=== PATIENT | female | born 1970 | race Caucasian/White ===

== ENCOUNTER 2019-11-26 13:14 | Inpatient (IN) | payer OTHER ==
--- NOTE | 2019-11-26 13:35 | ED ---
Psych HPI - General Chief Complaint: Psychiatric Symptoms Stated Complaint: EPS eval Time Seen by Provider: 11/26/19 13:27 Source: patient Mode of arrival: ambulatory - History of Present Illness Initial Comments: Patient is a 49-year-old female with history of bipolar disorder and depression presenting to the emergency department for psychiatric evaluation. Patient is brought to the ED by her father. Patient states she is currently going through a divorce and her mother is sick along with plethora of her own medical problems. Patient reports she is having a nervous breakdown and cannot handle situation. States she was recently started on antidepressant but could not name the medication. States she lives in [place] but is recently come back here to help with her mother. She denies any homicidal, suicidal thoughts or ideations. - Related Data Home Medications Medication Instructions Recorded Confirmed Albuterol Inhaler [Ventolin Hfa 2 puff INHALATION RT-Q6H PRN 11/26/19 11/26/19 Inhaler] Amoxicillin 500 mg PO BID 11/26/19 11/26/19 Betamethasone Dipropionate 1 applic TOPICAL BID 11/26/19 11/26/19 [Betamethasone Dipropionate 0.05%] Buta/APAP/Caf/Cod 55-864-60-30 1 cap PO TID PRN 11/26/19 11/26/19 [Fioricet w/Cod 09-105-51-30MG] Carvedilol [Coreg] 3.125 mg PO BID 11/26/19 11/26/19 Cyclobenzaprine [Flexeril] 10 mg PO TID PRN 11/26/19 11/26/19 Etanercept [Enbrel Sureclick] 50 mg SQ TH 11/26/19 11/26/19 HYDROcodone/APAP 7.5-325MG [[place] 1 tab PO Q6H PRN 11/26/19 11/26/19 7.5-325] Inulin/Chromium Picolinate [Fiber 2 tab PO DAILY 11/26/19 11/26/19 Gummies Chew] L.acidoph,Paracasei, B.lactis 1 cap PO DAILY 11/26/19 11/26/19 [Probiotic] Loratadine-Pseudoeph 5-120 mg 1 tab PO BID PRN 11/26/19 11/26/19 [Claritin-D 12 Hour] Losartan [Cozaar] 50 mg PO BID 11/26/19 11/26/19 Meloxicam [Mobic] 7.5 mg PO BID PRN 11/26/19 11/26/19 NIFEdipine [NIFEdipine ER 30 mg PO DAILY 11/26/19 11/26/19 (Osmotic)] Nortriptyline [Pamelor] See Taper PO HS 11/26/19 11/26/19 Ondansetron Odt [Zofran Odt] 8 mg PO Q8H PRN 11/26/19 11/26/19 Sennosides/Docusate Sodium [Colace 1 tab PO DAILY PRN 11/26/19 11/26/19 2-in-1 Tablet] Spironolactone [Aldactone] 25 mg PO DAILY 11/26/19 11/26/19 Wheat Dextrin [Benefiber] 1 packet PO HS PRN 11/26/19 11/26/19 amLODIPine [Norvasc] 10 mg PO DAILY 11/26/19 11/26/19 hydroCHLOROthiazide [Hydrodiuril] 25 mg PO DAILY 11/26/19 11/26/19 polyethylene glycoL 3350 [Miralax] 17 gm PO DAILY PRN 11/26/19 11/26/19 Allergies Allergy/AdvReac Type Severity Reaction Status Date / Time ciprofloxacin [From Cipro] Allergy Rash/Hives Verified 11/26/19 16:13 moxifloxacin [From Avelox] Allergy Rash/Hives Verified 11/26/19 16:13 acetaminophen [From Percocet] AdvReac kidney Verified 11/26/19 16:13 issues naproxen AdvReac kidney Verified 11/26/19 16:13 issues oxycodone [From Percocet] AdvReac Nausea Verified 11/26/19 16:13 Review of Systems ROS Statement: Those systems with pertinent positive or pertinent negative responses have been documented in the HPI. ROS Other: All systems not noted in ROS Statement are negative. Past Medical History Past Medical History: Hypertension, Osteoarthritis (OA) Additional Past Medical History / Comment(s): migraines History of Any Multi-Drug Resistant Organisms: None Reported Past Surgical History: Orthopedic Surgery Past Psychological History: Anxiety, Bipolar, Depression Smoking Status: Current every day smoker Past Alcohol Use History: Occasional Past Drug Use History: Marijuana General Exam Limitations: no limitations General appearance: alert, in no apparent distress, anxious Head exam: Present: atraumatic, normocephalic, normal inspection Eye exam: Present: normal appearance, PERRL, EOMI Pupils: Present: normal accommodation ENT exam: Present: normal exam, mucous membranes moist. Absent: normal oropharynx Neck exam: Present: normal inspection, full ROM. Absent: tenderness Respiratory exam: Present: normal lung sounds bilaterally. Absent: respiratory distress, wheezes, rales Cardiovascular Exam: Present: regular rate, normal rhythm, normal heart sounds Extremities exam: Present: normal inspection, full ROM, normal capillary refill. Absent: tenderness Back exam: Present: normal inspection, full ROM, tenderness (Chronic back pain) Neurological exam: Present: alert, oriented X3, CN II-XII intact, normal gait Psychiatric exam: Present: normal affect, agitated, anxious Skin exam: Present: warm, dry, intact, normal color Course Vital Signs 11/26/19 13:17 Temperature 98.1 F Pulse Rate 108 H Respiratory 18 Rate Blood Pressure 178/97 O2 Sat by Pulse 100 Oximetry Medical Decision Making - Medical Decision Making Patient is a 49-year-old female with history of bipolar disorder and depression presents emergency Department for psychiatric evaluation. Patient did appears anxious and agitated and examination. Patient has not been taking her bipolar medication for a while because she felt okay. EPS evaluated patient and she will be admitted for further psychiatric management. Case discussed with . - Lab Data Lab Results 11/26/19 Range/Units 14:00 Urine Opiates Screen Detected H (NotDetected) Ur Oxycodone Screen Not Detected (NotDetected) Urine Methadone Screen Not Detected (NotDetected) Ur Propoxyphene Screen Not Detected (NotDetected) Ur Barbiturates Screen Detected H (NotDetected) U Tricyclic Antidepress Not Detected (NotDetected) Ur Phencyclidine Scrn Not Detected (NotDetected) Ur Amphetamines Screen Not Detected (NotDetected) U Methamphetamines Scrn Not Detected (NotDetected) U Benzodiazepines Scrn Not Detected (NotDetected) Urine Cocaine Screen Not Detected (NotDetected) U Marijuana (THC) Screen Not Detected (NotDetected) Disposition Clinical Impression: Adjustment reaction of adult life Disposition: ADMITTED IP TO THIS HOSP Condition: Good Is patient prescribed a controlled substance at d/c from ED?: No Time of Disposition: 17:00
[2019-11-26 14:43] LABS: Amphetamine Screen,Urine Not Detected (NotDetected); Benzodiazepines Screen,Urine Not Detected (NotDetected); Cocaine Screen,Urine Not Detected (NotDetected); Opiate Screen,Urine Detected (NotDetected); Phencyclidine Screen,Urine Not Detected (NotDetected); Urn Cannabinoid Scrn Not Detected (NotDetected)
[2019-11-26 14:44] LABS: Barbiturate Screen,Urine Detected (NotDetected); Methadone Screen, Urine Not Detected (NotDetected); Oxycodone Screen, Urine Not Detected (NotDetected); Tricyclic Antidepressant,Urine Not Detected (NotDetected)
[2019-11-26] MEDS ORDERED: MAGNESIUM HYDROXIDE 2,400 MG/10 ML CUP PO PRN (17:59)
[2019-11-26] MEDS ORDERED: MAG HYDROX/AL HYDROX/SIMETH 30 ML CUP PO PRN (17:59)
[2019-11-26] MEDS ORDERED: ZIPRASIDONE 20 MG VIAL IM PRN (17:59)
[2019-11-26] MEDS ORDERED: CYCLOBENZAPRINE 10 MG TAB PO PRN (18:04)
[2019-11-26] MEDS ORDERED: BUTA/APAP/CAF/COD 50-325-40-30 CAP PO PRN (18:04)
[2019-11-26] MEDS ORDERED: ALBUTEROL HFA INHALER INHALATION PRN (18:04)
[2019-11-26] MEDS ORDERED: MELOXICAM 7.5 MG TAB PO PRN (18:04)
[2019-11-26] MEDS ORDERED: LORATADINE-PSEUDOEPH 5-120 MG 1 EACH TAB.ER.12H PO PRN (18:04)
[2019-11-26] MEDS ORDERED: LORazepam 2 MG/ML INJ IM PRN (18:10)
[2019-11-26] MEDS ORDERED: ETANERCEPT SQ SCH (18:15)
[2019-11-26] MEDS: NICOTINE 14MG/24HR PATCH TRANSDERM SCH (19:17)
[2019-11-26] MEDS ORDERED: carvediloL 3.125 MG TAB PO SCH (21:00)
[2019-11-26] MEDS: HYDROcodone/APAP 7.5-325MG 1 EACH TAB PO PRN (21:05)
[2019-11-26] MEDS: LOSARTAN 50 MG TAB PO SCH (21:05)
[2019-11-26] MEDS: LORazepam 1 MG TAB PO PRN (23:01)
--- NOTE | 2019-11-27 01:49 | P.MDCNMH ---
History of Present Illness H&P Date: 11/26/19 Chief Complaint: medical evaluation 49 year old female with hypertension , depression and bipolar disorder patient was brought in by her father for psych evaluation , due to pressing social issues, she is going through a divorce and has moved from [place] to take care of her dying mother. however, she strated feeling overwhelmed with all life pressures, yet, denies any suicidal or homicidal ideation. however, she feels that she has a plethora of medical issues herself. she starts by reporting bilateral occasional hand numbness, associated with neck stiffness, none at this time. she also reports chronic low back pain, with a small area of numbness around her mid back that comes and goes. she adds, that sometimes she would have migraine headache. she recently finished a course of antibiotics, for cyst removal off her abd skin. she mentioned that in the ED she was told she has urinary tract infection , but she denies any symptoms other than occasional incomplete emptying of the bladder. denies any heamturia or vaginal discharge she reports occasional tinnitus, but denies any associated nausea or vomiting, denies any changes in hearing, denies any dizziness or lightheadedness. patient kept reporting different issues whenever I ask her about any system in her body for review of systems, and she would claim that occasionally she would experience certain issues, she goes on adding that she has psoriasis, ankle stiffness, hand pain and stiffness, congested nose, fullness in her ears. occasional cough, alternating diarrhea and constipation , IBS, possible endometriosis , varicose veins bilateral legs, occasional leg swelling, migraine headaches. she denies any chest pain or trouble breathing. Review of Systems Pertinent positives as noted in HPI. All other systems were reviewed and are negative Past Medical History Past Medical History: Hypertension, Osteoarthritis (OA) Additional Past Medical History / Comment(s): migraines History of Any Multi-Drug Resistant Organisms: None Reported Past Surgical History: Orthopedic Surgery Past Psychological History: Anxiety, Bipolar, Depression Smoking Status: Current every day smoker Past Alcohol Use History: Occasional Past Drug Use History: Marijuana - Past Family History Family Additional Family Medical History / Comment(s): Endometriosis Medications and Allergies Home Medications Medication Instructions Recorded Confirmed Type Albuterol Inhaler [Ventolin Hfa 2 puff INHALATION RT-Q6H PRN 11/26/19 11/26/19 History Inhaler] Amoxicillin 500 mg PO BID 11/26/19 11/26/19 History Betamethasone Dipropionate 1 applic TOPICAL BID 11/26/19 11/26/19 History [Betamethasone Dipropionate 0.05%] Buta/APAP/Caf/Cod 74-012-92-30 1 cap PO TID PRN 11/26/19 11/26/19 History [Fioricet w/Cod 16-872-00-30MG] Carvedilol [Coreg] 3.125 mg PO BID 11/26/19 11/26/19 History Cyclobenzaprine [Flexeril] 10 mg PO TID PRN 11/26/19 11/26/19 History Etanercept [Enbrel Sureclick] 50 mg SQ TH 11/26/19 11/26/19 History HYDROcodone/APAP 7.5-325MG [[place] 1 tab PO Q6H PRN 11/26/19 11/26/19 History 7.5-325] Inulin/Chromium Picolinate [Fiber 2 tab PO DAILY 11/26/19 11/26/19 History Gummies Chew] L.acidoph,Paracasei, B.lactis 1 cap PO DAILY 11/26/19 11/26/19 History [Probiotic] Loratadine-Pseudoeph 5-120 mg 1 tab PO BID PRN 11/26/19 11/26/19 History [Claritin-D 12 Hour] Losartan [Cozaar] 50 mg PO BID 11/26/19 11/26/19 History Meloxicam [Mobic] 7.5 mg PO BID PRN 11/26/19 11/26/19 History NIFEdipine [NIFEdipine ER 30 mg PO DAILY 11/26/19 11/26/19 History (Osmotic)] Nortriptyline [Pamelor] See Taper PO HS 11/26/19 11/26/19 History Ondansetron Odt [Zofran Odt] 8 mg PO Q8H PRN 11/26/19 11/26/19 History Sennosides/Docusate Sodium [Colace 1 tab PO DAILY PRN 11/26/19 11/26/19 History 2-in-1 Tablet] Spironolactone [Aldactone] 25 mg PO DAILY 11/26/19 11/26/19 History Wheat Dextrin [Benefiber] 1 packet PO HS PRN 11/26/19 11/26/19 History amLODIPine [Norvasc] 10 mg PO DAILY 11/26/19 11/26/19 History hydroCHLOROthiazide [Hydrodiuril] 25 mg PO DAILY 11/26/19 11/26/19 History polyethylene glycoL 3350 [Miralax] 17 gm PO DAILY PRN 11/26/19 11/26/19 History Allergies Allergy/AdvReac Type Severity Reaction Status Date / Time ciprofloxacin [From Cipro] Allergy Rash/Hives Verified 11/26/19 16:13 moxifloxacin [From Avelox] Allergy Rash/Hives Verified 11/26/19 16:13 acetaminophen [From Percocet] AdvReac kidney Verified 11/26/19 16:13 issues naproxen AdvReac kidney Verified 11/26/19 16:13 issues oxycodone [From Percocet] AdvReac Nausea Verified 11/26/19 16:13 Physical Exam Vitals: Vital Signs Temp Pulse Pulse Resp BP BP Pulse Ox 11/26/19 23:02 80 157/91 11/26/19 18:17 97.9 F 102 H 18 154/103 11/26/19 17:17 98.6 F 98 18 158/92 98 11/26/19 13:17 98.1 F 108 H 18 178/97 100 Intake and Output 11/26/19 11/26/19 11/27/19 14:59 22:59 06:59 Other: Weight 76.204 kg Constitutional: No acute distress, conversant, pleasant Eyes: Anicteric sclerae, moist conjunctiva, Pupils equal round reactive to light ENMT: NC/AT the scope exam of the ear showed normal light reflex on bilateral tympanic membrane healthy-looking external auditory canal no blockage by any foreign bodies or ear wax Oropharynx clear, no erythema, or exudates Neck: Supple, FROM, no masses, or JVD No carotid bruits No thyromegaly Lungs: Clear to auscultation Clear to percussion Normal respiratory effort, no accessory muscle use Cardiovascular: Heart regular in rate and rhythm, No murmurs, gallops, or rubs No peripheral edema Abdominal: Soft Nontender, no guarding, rebound or rigidity Abdomen moving with respiration Normoactive bowel sounds No hepatomegaly, No splenomegaly No palpable mass No abdominal wall hernia noted Skin: Normal temperature, tone, texture, turgor No induration No subcutaneous nodules No rash, lesions No ulcers Extremities: No digital cyanosis No clubbing Pedal pulses intact and symmetrical Radial pulses intact and symmetrical No calf tenderness Psychiatric: Alert and oriented to person, place and time Depressed affect fair judgement Neuro Muscles Strength 5/5 in all 4 extremities Sensation to light touch grossly present throughout Cranial nerves II-XII grossly intact No focal sensory deficits Lymphatics: no palpable cervical or supraclavicular , or inguinal lymph nodes Cranial Nerve Examination - Cranial Nerves Cranial Nerve II- Optic: Intact Cranial Nerve III- Oculomotor: Intact Cranial Nerve IV- Trochlear: Intact Cranial Nerve V- Trigeminal: Intact Cranial Nerve - Abducens: Intact Cranial Nerve VII- Facial: Intact Cranial Nerve VIII- Auditory: Intact Cranial Nerve IX- Glossopharyngeal: Intact Cranial Nerve X- Vagus: Intact Cranial Nerve XI- Accessory: Intact Cranial Nerve XII- Hypoglossal: Intact Results Labs: Abnormal Lab Results - Last 24 Hours (Table) 11/26/19 Range/Units 14:00 Urine Opiates Screen Detected H (NotDetected) Ur Barbiturates Screen Detected H (NotDetected) Assessment and Plan Assessment: Bipolar disorder Depression Management per psych Hypertension controlled Resume home medications nifedipine Follow-up labs Low risk for DVT patient ambulatory Consider outpatient follow-up with PCP for hearing test, age-appropriate cancer screening test, and follow-up regarding her ongoing other chronic stable medical conditions. Thank you for allowing us to participate in the care of this patient. We will follow peripherally. Do not hesitate to contact us with questions. Someone can be reached from the [facility] hospitalist group at all hours of the day lory t [phone].
[2019-11-27 07:10] LABS: Basophils # (A) 0.1 k/uL (0-0.2); Basophils % (A) 1 %; Eosinophils # (A) 0.7 k/uL (0-0.7); Eosinophils % (A) 5 %; HCT 46.2 % (34.0-46.0); HGB 14.8 gm/dL (11.4-16.0); Lymphocytes # (A) 1.8 k/uL (1.0-4.8); Lymphocytes % (A) 14 %; MCH 31.5 pg (25.0-35.0); MCV 98.5 fL (80.0-100.0); Mean Platelet Volume 6.5; Monocytes # (A) 0.7 k/uL (0-1.0); Monocytes % (A) 5 %; Neutrophils # (A) 9.5 k/uL (1.3-7.7); Neutrophils % (A) 73 %; Platelet Count 409 k/uL (150-450); RBC 4.69 m/uL (3.80-5.40); RDW 14.3 % (11.5-15.5); WBC 13.1 k/uL (3.8-10.6)
[2019-11-27] MEDS: ACETAMINOPHEN TAB 325 MG TAB PO PRN ×2 (07:16→17:05)
[2019-11-27 07:26] LABS: ALT 17 U/L (4-34); AST 16 U/L (14-36); African American GFR (CKD) >90 (>60 ml/min/1.73 sqM); Albumin 3.7 g/dL (3.5-5.0); Alkaline Phosphatase 31 U/L (38-126); Anion Gap 5 mmol/L; Blood Urea Nitrogen 9 mg/dL (7-17); Calcium 9.1 mg/dL (8.4-10.2); Carbon Dioxide 28 mmol/L (22-30); Chloride 105 mmol/L (98-107); Cholesterol 161 mg/dL (<200); Glucose 82 mg/dL (74-99); HDL Cholesterol 41 mg/dL (40-60); LDL Cholesterol,Calculated 96 mg/dL (0-99); Non-African American GFR(CKD) >90 (>60 ml/min/1.73 sqM); Potassium 4.5 mmol/L (3.5-5.1); Sodium 138 mmol/L (137-145); Total Bilirubin 0.5 mg/dL (0.2-1.3); Total Protein 6.1 g/dL (6.3-8.2); Triglycerides 121 mg/dL (<150)
[2019-11-27] MEDS: NICOTINE 14MG/24HR PATCH TRANSDERM SCH (09:14)
[2019-11-27] MEDS: amLODIPine 10 MG TAB PO SCH (09:18)
[2019-11-27] MEDS: SENNOSIDES-DOCUSATE SODIUM 1 EACH TAB PO PRN (09:18)
[2019-11-27] MEDS: LOSARTAN 50 MG TAB PO SCH ×2 (09:18→21:32)
[2019-11-27] MEDS: NIFEdipine XL 30 MG TAB.ER.24 PO SCH (09:18)
[2019-11-27] MEDS: SPIRONOLACTONE 25 MG TAB PO SCH (09:19)
[2019-11-27] MEDS: hydroCHLOROthiazide 25 MG TAB PO SCH (09:19)
--- NOTE | 2019-11-27 11:36 | P.HP ---
Psychiatric H&P - . H&P Date: 11/27/19 History & Physical: Allergies Allergy/AdvReac Type Severity Reaction Status Date / Time ciprofloxacin From Cipro Allergy Rash/Hives Verified 11/26/19 16:13 moxifloxacin From Avelox Allergy Rash/Hives Verified 11/26/19 16:13 acetaminophen From Percocet AdvReac kidney Verified 11/26/19 16:13 issues naproxen AdvReac kidney Verified 11/26/19 16:13 issues oxycodone From Percocet AdvReac Nausea Verified 11/26/19 16:13 Vital Signs Temp 97.6 F 11/27/19 07:19 Pulse 85 11/27/19 09:21 Resp 16 11/27/19 07:19 BP 141/90 11/27/19 09:21 Pulse Ox 98 11/27/19 07:19 Intake & Output 11/26/19 11/27/19 11/27/19 18:59 06:59 18:59 Weight 76.204 kg Laboratory Last Values WBC 13.1 k/uL (3.8-10.6) H 11/27/19 06:42 RBC 4.69 m/uL (3.80-5.40) 11/27/19 06:42 Hgb 14.8 gm/dL (11.4-16.0) 11/27/19 06:42 Hct 46.2 % (34.0-46.0) H 11/27/19 06:42 MCV 98.5 fL (80.0-100.0) 11/27/19 06:42 MCH 31.5 pg (25.0-35.0) 11/27/19 06:42 MCHC 32.0 g/dL (31.0-37.0) 11/27/19 06:42 RDW 14.3 % (11.5-15.5) 11/27/19 06:42 Plt Count 409 k/uL (150-450) 11/27/19 06:42 Neutrophils % 73 % 11/27/19 06:42 Lymphocytes % 14 % 11/27/19 06:42 Monocytes % 5 % 11/27/19 06:42 Eosinophils % 5 % 11/27/19 06:42 Basophils % 1 % 11/27/19 06:42 Neutrophils # 9.5 k/uL (1.3-7.7) H 11/27/19 06:42 Lymphocytes # 1.8 k/uL (1.0-4.8) 11/27/19 06:42 Monocytes # 0.7 k/uL (0-1.0) 11/27/19 06:42 Eosinophils # 0.7 k/uL (0-0.7) 11/27/19 06:42 Basophils # 0.1 k/uL (0-0.2) 11/27/19 06:42 Sodium 138 mmol/L (137-145) 11/27/19 06:42 Potassium 4.5 mmol/L (3.5-5.1) 11/27/19 06:42 Chloride 105 mmol/L (98-107) 11/27/19 06:42 Carbon Dioxide 28 mmol/L (22-30) 11/27/19 06:42 Anion Gap 5 mmol/L 11/27/19 06:42 BUN 9 mg/dL (7-17) 11/27/19 06:42 Creatinine 0.55 mg/dL (0.52-1.04) 11/27/19 06:42 Est GFR (CKD-EPI)AfAm >90 (>60 ml/min/1.73 sqM) 11/27/19 06:42 Est GFR (CKD-EPI)NonAf >90 (>60 ml/min/1.73 sqM) 11/27/19 06:42 Glucose 82 mg/dL (74-99) 11/27/19 06:42 Calcium 9.1 mg/dL (8.4-10.2) 11/27/19 06:42 Total Bilirubin 0.5 mg/dL (0.2-1.3) 11/27/19 06:42 AST 16 U/L (14-36) 11/27/19 06:42 ALT 17 U/L (4-34) 11/27/19 06:42 Alkaline Phosphatase 31 U/L (38-126) L 11/27/19 06:42 Total Protein 6.1 g/dL (6.3-8.2) L 11/27/19 06:42 Albumin 3.7 g/dL (3.5-5.0) 11/27/19 06:42 Triglycerides 121 mg/dL (<150) 11/27/19 06:42 Cholesterol 161 mg/dL (<200) 11/27/19 06:42 LDL Cholesterol, Calc 96 mg/dL (0-99) 11/27/19 06:42 HDL Cholesterol 41 mg/dL (40-60) 11/27/19 06:42 TSH 0.969 mIU/L (0.465-4.680) 11/27/19 06:42 Urine Opiates Screen Detected (NotDetected) H 11/26/19 14:00 Ur Oxycodone Screen Not Detected (NotDetected) 11/26/19 14:00 Urine Methadone Screen Not Detected (NotDetected) 11/26/19 14:00 Ur Propoxyphene Screen Not Detected (NotDetected) 11/26/19 14:00 Ur Barbiturates Screen Detected (NotDetected) H 11/26/19 14:00 U Tricyclic Antidepress Not Detected (NotDetected) 11/26/19 14:00 Ur Phencyclidine Scrn Not Detected (NotDetected) 11/26/19 14:00 Ur Amphetamines Screen Not Detected (NotDetected) 11/26/19 14:00 U Methamphetamines Scrn Not Detected (NotDetected) 11/26/19 14:00 U Benzodiazepines Scrn Not Detected (NotDetected) 11/26/19 14:00 Urine Cocaine Screen Not Detected (NotDetected) 11/26/19 14:00 U Marijuana (THC) Screen Not Detected (NotDetected) 11/26/19 14:00 11/27/19 10:33 IDENTIFYING DATA: Patient is a 49-year-old female who is coming from [place] where she lives and is visiting family in the area and has a history of bipolar disorder and multiple medical comorbidities. HPI: Patient presented to the hospital yesterday with her father for psychiatric evaluation. Patient has a history of bipolar disorder and depression. Patient stated in the ER that she is currently going through a divorce and dealing with her mother being sick. Patient also endorsed several medical problems that she is currently encountering. She claims that she is going through a "nervous breakdown ". Patient came from [place] to help with her mother locally. Patient appeared to be agitated and anxious in the ER was given Ativan. Patient had admitted in the ER that she was off her medications for a while as she was feeling okay. Patient's UDS is positive for opiates and barbiturates. Patient was agreeable to speak to script writer for evaluation today. Patient appeared to be disheveled in appearance and was irritable at times. She was initially fairly guarded however spoke about her stressors in her life including her divorce and being "overwhelmed and fearful" about the divorce proceedings. She states that she is currently in town visiting family members and trying to decide on what they are going to do with regards to her mother's condition in [place]. She st ates that her mother has breast cancer and has been battling her for several years. She states that she has been staying with her father for one week now and wants to eventually move back to [place] to be near her family. She claims that she was previously, several years ago on Abilify and was doing well on it with regards to her mood however claims that she stopped taking the medication several years ago due to "weight gain" and states that now her mood is "up and down but mainly depressed". She states that she is also been emotional and irritable. She admits to anxiety. She states her sleep has been poor and appetite has been fair. Patient denies any suicidal or homicidal ideations intent or plan. At this time patient denies any auditory or visual hallucinations. Patient denies any flight of ideas racing thoughts and increased in goal directed behavior. Patient admits to using marijuana occasionally and states that she has a marijuana card. She admits to cigarette use and denies any other recreational drugs. PAST PSYCHIATRIC HISTORY: Patient states that his history of bipolar disorder. Patient denies being on any psychiatric medications however was previously on Abilify and nortriptyline. Patient denies any previous psychiatric hospitalizations. Patient denies any psychiatric outpatient follow-up. She states that she once had a possible suicide attempt where she pulled a gun to her head however states that "I did it out of anger". PMH: Hypertension, osteoarthritis, migraines. ALLERGIES: as per EMR CHEMICAL DEPENDENCY HISTORY: as per HPI FAMILY PSYCHIATRIC/SUBSTANCE USE HISTORY: States that her mother has PTSD SOCIAL HISTORY: Patient was born and raised in [facility] and claims that she moved to [place] to be with her and was there for over 20 years. She claims that she has 2 kids is currently and going through divorce and also is currently unemployed as she was a [id number] mom. She claimed that she completed high school and did some college in [place]. She denies any legal history. MENTAL STATUS EXAM: General Appearance: Patient appears to be older than stated age is alert, irritable and initially guarded/evasive. Patient appears to have poor hygiene and grooming. Disheveled appearance. Behavior: Patient is seated without any agitated behavior. Irritable at times and guarded. Speech: Patient's speech is fluent and nonpressured. Mood/Affect: Patient reports their mood is depressed, affect is congruent and irritable Suicidality/Homicidality: Patient denies having any homicidal ideation intent or plan. Denies any suicidal ideations intent or plan Perceptions: Patient denies any visual hallucinations and denies any auditory hallucinations Though content/process: There is no evidence of any delusional thought content and thought process is linear and goal-directed. Focused on her medications and her stressors. Catastrophizing. Memory and concentration: AOX3, grossly intact for the purposes of this session. Can spell "WORLD" backwards Judgment and insight: poor STRENGTHS/WEAKNESSES: strength is that patient is resilient. Weakness is that patient has poor judgment and several familial stressors. INTELLECT: average IMPRESSIONS: Bipolar disorder, currently depressed Cannabis use disorder Nicotine dependence PLAN: -Patient is admitted under voluntary status to MHU for stabilization of psychiatric symptoms and safety. Patient signed adult voluntary form and medication consent and is placed in patient's chart. -Medications : Will start patient on Latuda 20 mg at dinnertime for mood stabilization/depression, we will also start patient on trazodone 50 mg daily at bedtime for insomnia/mood. -Ativan and Geodon PRN for agitation/aggression -Patient was counselled on substance abuse however was superficial about cutting back her use. -Patient was informed of the risks, benefits and side effects of the medication and patient verbally consented to taking the medications. Patient signed med consent form and was placed in chart. -Internal Medicine consult to perform medical evaluation and physical. -NRT - nicotine patch -SW on board for discharge planning. Encourage patient to participate in groups to work on coping skills. poultry farmworker to gather further collateral information from patient's father. 11/27/19 11:30
[2019-11-27 14:17] LABS: Hemoglobin A1C 5.8 % (4.0-6.0)
[2019-11-27] MEDS: LURASIDONE 20 MG TAB PO SCH (18:26)
[2019-11-27] MEDS: polyethylene glycoL 3350 17 GM POWD.PACK PO PRN (19:11)
[2019-11-27] MEDS: traZODone HCL 50 MG TAB PO SCH (21:32)
[2019-11-27] MEDS: LORazepam 1 MG TAB PO PRN (23:47)
[2019-11-28] MEDS: NICOTINE 14MG/24HR PATCH TRANSDERM SCH (08:28)
[2019-11-28] MEDS: ACETAMINOPHEN TAB 325 MG TAB PO PRN ×3 (08:29→18:27)
[2019-11-28] MEDS: NIFEdipine XL 30 MG TAB.ER.24 PO SCH (08:30)
[2019-11-28] MEDS: LOSARTAN 50 MG TAB PO SCH ×2 (08:30→21:14)
[2019-11-28] MEDS: amLODIPine 10 MG TAB PO SCH (08:30)
[2019-11-28] MEDS: hydroCHLOROthiazide 25 MG TAB PO SCH (08:30)
[2019-11-28] MEDS: SPIRONOLACTONE 25 MG TAB PO SCH (08:30)
--- NOTE | 2019-11-28 10:39 | P.PN ---
Progress Note - Text Progress Note Date: 11/28/19 Interval History: Patient was seen wandering the hallways and was directable and agreeable to sp saleem with rewriter in the office. Patient appeared to have improvement in her hygiene and grooming and had her makeup on today. She appeared to be more appropriate today however was fairly argumentative with rewriter and very preoccupied with discharge today. She states that "I'm doing better and 72 hours is up". The court process and voluntary admission and her rights were explained to her several times. Patient continued to perseverate on following up with a psychiatrist on the outside. She claims that her mood is doing okay however she did complain of auditory hallucinations which she was fairly vague about and did not describe in detail however were command in nature. She claims that she was able to sleep better last night. Her appetite is fair. At this time patient denies any suicidal or homical ideations, intent or plan. Patient denies any auditory, visual hallucinations and denies any paranoia or delusions. Patient denies any side effects from the medications and has been compliant with meds. Mental Status Exam: General Appearance: Patient appears to be older than stated age is alert, argumentative today. Patient appears to have improving hygiene and grooming Behavior: Patient is seated without any agitated behavior. Argumentative today. Speech: Patient's speech is fluent and nonpressured. Mood/Affect: Patient reports their mood is improving mildly, affect is congruent and less irritable. Suicidality/Homicidality: Patient denies having any homicidal ideation intent or plan. Denies any suicidal ideations intent or plan Perceptions: Patient denies any visual hallucinations and denies any auditory hallucinations Though content/process: There is no evidence of any delusional thought content and thought process is linear and goal-directed. Focused on discharge today. Argumentative. Memory and concentration: AOX3, grossly intact for the purposes of this session. Judgment and insight: poor, improving mildly Assessment: Bipolar disorder, currently depressed Cannabis use disorder Nicotine dependence Plan: -Patient continues to meet criteria for inpatient psychiatric admission for symptom stabilization and safety. Patient has signed adult voluntary form and medication consent and was placed in patient's chart. -Medications: We'll continue with Latuda 20 mg at dinnertime for mood stabilization/depression. Continue trazodone 50 mg daily at bedtime for insomnia/mood. -When necessary Ativan and Geodon for agitation/aggression. -NRT - nicotine patch -SW on board for discharge planning. Encouraged the patient to participate in milieu. casino gaming worker to gather further collateral information from patient's father. Will observe over the weekend and likely discharge early next week.
[2019-11-28] MEDS: SENNOSIDES-DOCUSATE SODIUM 1 EACH TAB PO PRN (13:33)
[2019-11-28] MEDS: LURASIDONE 20 MG TAB PO SCH (17:44)
[2019-11-28] MEDS: polyethylene glycoL 3350 17 GM POWD.PACK PO PRN (18:24)
[2019-11-28] MEDS: traZODone HCL 50 MG TAB PO SCH (21:14)
[2019-11-28] MEDS: LORazepam 1 MG TAB PO PRN (22:35)
[2019-11-29] MEDS: NICOTINE 14MG/24HR PATCH TRANSDERM SCH (07:52)
[2019-11-29] MEDS: ACETAMINOPHEN TAB 325 MG TAB PO PRN ×2 (07:53→16:41)
[2019-11-29] MEDS: SENNOSIDES-DOCUSATE SODIUM 1 EACH TAB PO PRN (07:53)
[2019-11-29] MEDS: NIFEdipine XL 30 MG TAB.ER.24 PO SCH (07:54)
[2019-11-29] MEDS: hydroCHLOROthiazide 25 MG TAB PO SCH (07:54)
[2019-11-29] MEDS: LOSARTAN 50 MG TAB PO SCH ×2 (07:54→21:09)
[2019-11-29] MEDS: SPIRONOLACTONE 25 MG TAB PO SCH (07:54)
[2019-11-29] MEDS: amLODIPine 10 MG TAB PO SCH (07:54)
--- NOTE | 2019-11-29 11:47 | P.PN ---
Progress Note - Text Progress Note Date: 11/29/19 Interval History: Patient was seen wandering the hallways and was directable and agreeable to sp eak with health underwriter in the office. Patient appeared to have improvement in her hygiene and grooming and had her makeup on today. She continues to be preoccupied with discharge and her symptoms. She was fairly somatically preoccupied today and claims that she feels that she is going through withdrawal from her pain medications as she is refusing to take it on the unit. Patient continues to be fairly needy and demanding with health underwriter. She claims that her mood is improving mildly and is agreeable to have her latuda increased today. She continues to state she hears vague "people speaking" however is not able to describe more about it. She claims that she was able to sleep better last night. Her appetite is fair. At this time patient denies any suicidal or homical ideations, intent or plan. Patient denies any auditory, visual hallucinations and denies any paranoia or delusions. Patient denies any side effects from the medications and has been compliant with meds. Mental Status Exam: General Appearance: Patient appears to be older than stated age is alert, argumentative and needy today. Patient appears to have improving hygiene and grooming Behavior: Patient is seated without any agitated behavior. Argumentative and needy today. Speech: Patient's speech is fluent and nonpressured. Mood/Affect: Patient reports their mood is improving mildly, affect is congruent and less irritable. Suicidality/Homicidality: Patient denies having any homicidal ideation intent or plan. Denies any suicidal ideations intent or plan Perceptions: Patient denies any visual hallucinations and denies any auditory hallucinations Though content/process: There is no evidence of any delusional thought content and thought process is linear and goal-directed. Focused on discharge today and preoccupied somatically. Memory and concentration: AOX3, grossly intact for the purposes of this session. Judgment and insight: poor, improving mildly Assessment: Bipolar disorder, currently depressed Cannabis use disorder Nicotine dependence Plan: -Patient continues to meet criteria for inpatient psychiatric admission for symptom stabilization and safety. Patient has signed adult voluntary form and me dication consent and was placed in patient's chart. -Medications: We'll increase Latuda 40 mg at dinnertime for mood stabilization/depression. Continue trazodone 50 mg daily at bedtime for insomnia/mood. I added melatonin 3 mg daily at bedtime for insomnia. -When necessary Ativan and Geodon for agitation/aggression. -NRT - nicotine patch -SW on board for discharge planning. Encouraged the patient to participate in milieu. chamber worker to gather further collateral information from patient's father. Will observe over the weekend and likely discharge early next week.
[2019-11-29] MEDS: SENNOSIDES-DOCUSATE SODIUM 1 EACH TAB PO SCH ×2 (12:00→21:10)
[2019-11-29] MEDS: LURASIDONE 40 MG TAB PO SCH (18:27)
[2019-11-29] MEDS: MELATONIN 3 MG TABLET PO SCH (21:09)
[2019-11-29] MEDS: traZODone HCL 50 MG TAB PO SCH (21:09)
[2019-11-29 22:02] LABS: Appearance,Urine Cloudy (Clear); Bacteria,Urine Many /hpf; Bilirubin,Urine Negative (Negative); Blood,Urine Negative (Negative); Color,Urine Yellow; Glucose,Urine (UA) Negative (Negative); Ketones,Urine Negative (Negative); Leukocyte Esterase,Urine Negative (Negative); Mucus,Urine Rare /hpf; Nitrite,Urine Negative (Negative); Protein,Urine Negative (Negative); RBC,Urine 2 /hpf (0-5); Specific Gravity,Urine 1.011 (1.001-1.035); Squamous Epithelial Cell,Urine 3 /hpf (0-4); Urobilinogen,Urine <2.0 mg/dL (<2.0); WBC,Urine 3 /hpf (0-5)
[2019-11-30] MEDS: amLODIPine 10 MG TAB PO SCH (08:49)
[2019-11-30] MEDS: NIFEdipine XL 30 MG TAB.ER.24 PO SCH (08:50)
[2019-11-30] MEDS: NICOTINE 14MG/24HR PATCH TRANSDERM SCH (08:50)
[2019-11-30] MEDS: hydroCHLOROthiazide 25 MG TAB PO SCH (08:50)
[2019-11-30] MEDS: LOSARTAN 50 MG TAB PO SCH ×2 (08:50→20:37)
[2019-11-30] MEDS: SENNOSIDES-DOCUSATE SODIUM 1 EACH TAB PO SCH ×2 (08:50→20:37)
[2019-11-30] MEDS: ACETAMINOPHEN TAB 325 MG TAB PO PRN (08:51)
[2019-11-30] MEDS: SPIRONOLACTONE 25 MG TAB PO SCH (08:51)
--- NOTE | 2019-11-30 11:33 | P.PN ---
Progress Note - Text Progress Note Date: 11/30/19 Interval History: Patient was seen wandering the hallways and was directable and agreeable to sp [place] with software writer in the office. Patient appeared to have improvement in her hygiene and grooming and had her makeup on today. She states that she is feeling better today with the increase in her medications. Patient had several questions about her medications. She states that she has a new roommate and claims that it was more difficult to sleep last night and only got 2-3 hours of sleep. She was agreeable to have her trazodone increased for tonight. Patient continues to be fairly needy with software writer. She claims that her mood is improving mildly. She continues to state she hears vague "people speaking" however is not able to describe more about it. Her appetite is fair. At this time patient denies any suicidal or homical ideations, intent or plan. Patient denies any auditory, visual hallucinations and denies any paranoia or delusions. Patient denies any side effects from the medications and has been compliant with meds. Mental Status Exam: General Appearance: Patient appears to be older than stated age is alert, more cooperative today and needy today. Patient appears to have improving hygiene and grooming Behavior: Patient is seated without any agitated behavior. Needy today. Speech: Patient's speech is fluent and nonpressured. Mood/Affect: Patient reports their mood is improving mildly, affect is congruent Suicidality/Homicidality: Patient denies having any homicidal ideation intent or plan. Denies any suicidal ideations intent or plan Perceptions: Patient denies any visual hallucinations and denies any auditory hallucinations Though content/process: There is no evidence of any delusional thought content and thought process is linear and goal-directed. Focused on discharge Memory and concentration: AOX3, grossly intact for the purposes of this session. Judgment and insight: improving mildly Assessment: Bipolar disorder, currently depressed Cannabis use disorder Nicotine dependence Plan: -Patient continues to meet criteria for inpatient psychiatric admission for symptom stabilization and safety. Patient has signed adult voluntary form and medication consent and was placed in patient's chart. -Medications: We'll continue with Latuda 40 mg at dinnertime for mood stabilization/depression. Increased trazodone 100 mg daily at bedtime for insomnia/mood. Continue melatonin 3 mg daily at bedtime for insomnia. -When necessary Ativan and Geodon for agitation/aggression. -NRT - nicotine patch -SW on board for discharge planning. Encouraged the patient to participate in milieu. Patient has signed release of information for her father Efrain. It Help Desk Manager attempted to call patient's father to plan for possible discharge tomorrow at [phone] however no answer and left a voicemail.
[2019-11-30] MEDS: HYDROcodone/APAP 7.5-325MG 1 EACH TAB PO PRN (14:28)
[2019-11-30] MEDS: LURASIDONE 40 MG TAB PO SCH (17:26)
[2019-11-30] MEDS: MELATONIN 3 MG TABLET PO SCH (20:37)
[2019-11-30] MEDS ORDERED: traZODone HCL 100 MG TAB PO SCH (21:00)
[2019-12-01 06:33] VITALS: RESP 16
[2019-12-01] MEDS: SPIRONOLACTONE 25 MG TAB PO SCH (09:38)
[2019-12-01] MEDS: hydroCHLOROthiazide 25 MG TAB PO SCH (09:38)
[2019-12-01] MEDS: LOSARTAN 50 MG TAB PO SCH (09:38)
[2019-12-01] MEDS: amLODIPine 10 MG TAB PO SCH (09:38)
[2019-12-01] MEDS: SENNOSIDES-DOCUSATE SODIUM 1 EACH TAB PO SCH (09:38)
[2019-12-01] MEDS: NIFEdipine XL 30 MG TAB.ER.24 PO SCH (09:39)
[2019-12-01 09:40] VITALS: BP 128/77; PULSE 97
--- NOTE | 2019-12-01 10:10 | P.DS ---
Providers Date of admission: 11/26/19 16:47 Expected date of discharge: 12/01/19 Attending physician: Miguel Segura MD Consults: 11/26/19 17:59 Consult Physician Routine Consulting Provider: Alonso Allred Consult Reason/Comments: New Admission Do you want consulting provider notified?: Yes Primary care physician: Physician Nonstaff - Discharge Diagnosis(es) (1) Bipolar disorder, unspecified Current Visit: Yes Status: Acute Priority: High (2) Cannabis use disorder, mild, abuse Current Visit: Yes Status: Acute Priority: Medium (3) Nicotine dependence Current Visit: Yes Status: Acute Priority: Low Hospital Course: Admission HPI: Patient is a 49-year-old female who is coming from [place] where she lives and is visiting family in the area and has a history of bipolar disorder and multiple medical comorbidities. Patient presented to the hospital yesterday with her father for psychiatric evaluation. Patient has a history of bipolar disorder and depression. Patient stated in the ER that she is currently going through a divorce and dealing with her mother being sick. Patient also endorsed several medical problems that she is currently encountering. She claims that she is going through a "nervous breakdown ". Patient came from [place] to help with her mother locally. Patient appeared to be agitated and anxious in the ER was given Ativan. Patient had admitted in the ER that she was off her medications for a while as she was feeling okay. Patient's UDS is positive for opiates and barbiturates. Patient was agreeable to speak to song writer for evaluation today. Patient appeared to be disheveled in appearance and was irritable at times. She was initially fairly guarded however spoke about her stressors in her life including her divorce and being "overwhelmed and fearful" about the divorce proceedings. She states that she is currently in town visiting family members and trying to decide on what they are going to do with regards to her mother's condition in [place]. She states that her mother has breast cancer and has been battling her for several years. She states that she has been staying with her father for one week now and wants to eventually move back to [place] to be near her family. She claims that she was previously, several years ago on Abilify and was doing well on it with regards to her mood however claims that she stopped taking the medication several years ago due to "weight gain" and states that now her mood is "up and down but mainly depressed". She states that she is also been emotional and irritable. She admits to anxiety. She states her sleep has been poor and appetite has been fair. Patient denies any suicidal or homicidal ideations intent or plan. At this time patient denies any auditory or visual hallucinations. Patient denies any flight of ideas racing thoughts and increased in goal directed behavior. Patient admits to using marijuana occasionally and states that she has a marijuana card. She admits to cigarette use and denies any other recreational drugs. Hospital course: Upon admission to the unit patient was initially overwhelmed, and feeling distressed. Patient was however directable and agreeable to commence treatment. Patient got along well with other patients on the unit and followed unit protocol. Patient was compliant with the medications and denied any side effects throughout hospital course. Patient was started on latuda and titrated up to a dose of 40 mg at dinnertime for mood stabilization/depression, patient was also started on trazodone and titrated up to a dose of 100 mg nightly for insomnia/mood. Patient was also started on melatonin 3 mg daily at bedtime for insomnia.. Patient spoke of her stressors and engaged in therapy both group and individual. Patient was also seen by medical team for history and physical exam. [] Throughout the course of the hospitalization patient gradually improved with regards to [mood, anxiety], sleep and became future oriented with improved insight and judgment. On the day of discharge patient denied any suicidal or homicidal ideations intent or plan denied any auditory or visual hallucinations. Patient endorsed wanting to live for her future and her family. Patient denied any paranoia and did not endorse any delusions. Patient does [not] have a significant history of substance abuse [however] was counseled on abstaining from all substances including alcohol and marijuana. Patient was also counseled on the medications and need for regular compliance and was encouraged to follow-up with their outpatient appointment for mental health and also for primary care. [Prior to discharge a family meeting will be arranged by social media senior associate to answer any questions and ensure safety upon discharge and to ensure that there are no weapons/guns in the house and that father will be able to pick patient up today.] Mental status exam: General Appearance: [Patient appears to be stated age is alert, pleasant, and cooperative. Patient is in no acute distress and has fair hygiene and grooming] Behavior: [Patient is calmly seated without any agitated behavior.] Cooperative. Speech: Patient's speech is fluent and nonpressured. Mood/Affect: Patient reports their mood is "[better]", affect is congruent and euthymic. Suicidality/Homicidality: Patient denies having any suicidal or homicidal ideation intent or plan. Perceptions: Patient denies any auditory or visual hallucinations. Though content/process: There is no evidence of any delusional thought content and thought process is linear and goal-directed. [more future oriented and optimistic] Memory and concentration: AOX3, grossly intact for the purposes of this session. Can spell "WORLD" backwards correctly. Judgment and insight: Improved [with guarded prognosis] Impression: Bipolar disorder unspecified Cannabis use disorder, mild Nicotine dependence Plan: -Continue with discharge today as patient has improved and stabilized psychiatrically and is not currently an imminent threat to herself and/or others. -Continue medications: Continue with latuda 40mg at dinnertime for mood stabilization/depression, trazodone 100 mg daily at bedtime for insomnia/mood, melatonin 3 mg nightly for insomnia. -Patient was counseled on the need for medication compliance and appropriate follow-up at mental health and also primary care for medical issues. Patient verbalized understanding and agreed. -Social work to [arrange for and conduct family meeting to ensure safety upon discharge and answer any questions/concerns.] Social work also to arrange for patients follow up appointments for psychiatric care along with follow up with primary care provider. -Patient counseled on abstaining from recreational drugs and marijuana and alcohol. Was informed/educated on the adverse effects on their physical and mental health. [Patient verbally agreed and understood]. -Patient was instructed to return to the hospital or seek immediate medical care if their psychiatric or medical symptoms do worsen or reoccur. Allergies Allergy/AdvReac Type Severity Reaction Status Date / Time ciprofloxacin [From Cipro] Allergy Rash/Hives Verified 11/26/19 16:13 moxifloxacin [From Avelox] Allergy Rash/Hives Verified 11/26/19 16:13 acetaminophen [From Percocet] AdvReac kidney Verified 11/26/19 16:13 issues naproxen AdvReac kidney Verified 11/26/19 16:13 issues oxycodone [From Percocet] AdvReac Nausea Verified 11/26/19 16:13 Laboratory Results WBC 13.1 k/uL (3.8-10.6) H 11/27/19 06:42 RBC 4.69 m/uL (3.80-5.40) 11/27/19 06:42 Hgb 14.8 gm/dL (11.4-16.0) 11/27/19 06:42 Hct 46.2 % (34.0-46.0) H 11/27/19 06:42 MCV 98.5 fL (80.0-100.0) 11/27/19 06:42 MCH 31.5 pg (25.0-35.0) 11/27/19 06:42 MCHC 32.0 g/dL (31.0-37.0) 11/27/19 06:42 RDW 14.3 % (11.5-15.5) 11/27/19 06:42 Plt Count 409 k/uL (150-450) 11/27/19 06:42 Neutrophils % 73 % 11/27/19 06:42 Lymphocytes % 14 % 11/27/19 06:42 Monocytes % 5 % 11/27/19 06:42 Eosinophils % 5 % 11/27/19 06:42 Basophils % 1 % 11/27/19 06:42 Neutrophils # 9.5 k/uL (1.3-7.7) H 11/27/19 06:42 Lymphocytes # 1.8 k/uL (1.0-4.8) 11/27/19 06:42 Monocytes # 0.7 k/uL (0-1.0) 11/27/19 06:42 Eosinophils # 0.7 k/uL (0-0.7) 11/27/19 06:42 Basophils # 0.1 k/uL (0-0.2) 11/27/19 06:42 Sodium 138 mmol/L (137-145) 11/27/19 06:42 Potassium 4.5 mmol/L (3.5-5.1) 11/27/19 06:42 Chloride 105 mmol/L (98-107) 11/27/19 06:42 Carbon Dioxide 28 mmol/L (22-30) 11/27/19 06:42 Anion Gap 5 mmol/L 11/27/19 06:42 BUN 9 mg/dL (7-17) 11/27/19 06:42 Creatinine 0.55 mg/dL (0.52-1.04) 11/27/19 06:42 Est GFR (CKD-EPI)AfAm >90 (>60 ml/min/1.73 sqM) 11/27/19 06:42 Est GFR (CKD-EPI)NonAf >90 (>60 ml/min/1.73 sqM) 11/27/19 06:42 Glucose 82 mg/dL (74-99) 11/27/19 06:[address] Glu mg/dL 120 11/27/19 06:42 Hemoglobin A1c 5.8 % (4.0-6.0) 11/27/19 06:42 Calcium 9.1 mg/dL (8.4-10.2) 11/27/19 06:42 Total Bilirubin 0.5 mg/dL (0.2-1.3) 11/27/19 06:42 AST 16 U/L (14-36) 11/27/19 06:42 ALT 17 U/L (4-34) 11/27/19 06:42 Alkaline Phosphatase 31 U/L (38-126) L 11/27/19 06:42 Total Protein 6.1 g/dL (6.3-8.2) L 11/27/19 06:42 Albumin 3.7 g/dL (3.5-5.0) 11/27/19 06:42 Triglycerides 121 mg/dL (<150) 11/27/19 06:42 Cholesterol 161 mg/dL (<200) 11/27/19 06:42 LDL Cholesterol, Calc 96 mg/dL (0-99) 11/27/19 06:42 HDL Cholesterol 41 mg/dL (40-60) 11/27/19 06:42 Vitamin D 25-Hydroxy 19.7 ng/mL (30.0-100.0) L 11/27/19 06:42 TSH 0.969 mIU/L (0.465-4.680) 11/27/19 06:42 Urine Color Yellow 11/29/19 21:15 Urine Appearance Cloudy (Clear) H 11/29/19 21:15 Urine pH 6.0 (5.0-8.0) 11/29/19 21:15 Ur Specific [place] 1.011 (1.001-1.035) 11/29/19 21:15 Urine Protein Negative (Negative) 11/29/19 21:15 Urine Glucose (UA) Negative (Negative) 11/29/19 21:15 Urine Ketones Negative (Negative) 11/29/19 21:15 Urine Blood Negative (Negative) 11/29/19 21:15 Urine Nitrite Negative (Negative) 11/29/19 21:15 Urine Bilirubin Negative (Negative) 11/29/19 21:15 Urine Urobilinogen <2.0 mg/dL (<2.0) 11/29/19 21:15 Ur Leukocyte Esterase Negative (Negative) 11/29/19 21:15 Urine RBC 2 /hpf (0-5) 11/29/19 21:15 Urine WBC 3 /hpf (0-5) 11/29/19 21:15 Ur Squamous Epith Cells 3 /hpf (0-4) 11/29/19 21:15 Urine Bacteria Many /hpf (None) H 11/29/19 21:15 Urine Mucus Rare /hpf (None) H 11/29/19 21:15 Urine Opiates Screen Detected (NotDetected) H 11/26/19 14:00 Ur Oxycodone Screen Not Detected (NotDetected) 11/26/19 14:00 Urine Methadone Screen Not Detected (NotDetected) 11/26/19 14:00 Ur Propoxyphene Screen Not Detected (NotDetected) 11/26/19 14:00 Ur Barbiturates Screen Detected (NotDetected) H 11/26/19 14:00 U Tricyclic Antidepress Not Detected (NotDetected) 11/26/19 14:00 Ur Phencyclidine Scrn Not Detected (NotDetected) 11/26/19 14:00 Ur Amphetamines Screen Not Detected (NotDetected) 11/26/19 14:00 U Methamphetamines Scrn Not Detected (NotDetected) 11/26/19 14:00 U Benzodiazepines Scrn Not Detected (NotDetected) 11/26/19 14:00 Urine Cocaine Screen Not Detected (NotDetected) 11/26/19 14:00 U Marijuana (THC) Screen Not Detected (NotDetected) 11/26/19 14:00 Vital Signs Temp 98.8 F 09/08/20 06:33 Pulse 97 12/01/19 09:40 Resp 16 12/01/19 06:33 BP 128/77 12/01/19 09:40 Pulse Ox 98 12/01/19 06:33 Patient Condition at Discharge: Stable Plan - Discharge Summary New Discharge Prescriptions: New Spironolactone [Aldactone] 25 mg PO DAILY 30 Days tab Losartan [Cozaar] 50 mg PO BID 30 Days tab traZODone HCL [Desyrel] 100 mg PO HS 30 Days tab hydroCHLOROthiazide [Hydrodiuril] 25 mg PO DAILY 30 Days tab Lurasidone [Latuda] 40 mg PO 1800 30 Days tab Melatonin 3 mg PO HS #0 tablet amLODIPine [Norvasc] 10 mg PO DAILY 30 Days tab NIFEdipine XL [Procardia XL] 30 mg PO DAILY 30 Days tab.er.24 Sennosides-Docusate Sodium [Senokot-S] 1 each PO BID tab Acetaminophen Tab [Tylenol] 650 mg PO Q4HR PRN tab PRN Reason: Pain/Discomfort Continue Inulin/Chromium Picolinate [Fiber Gummies Chew] 2 tab PO DAILY Betamethasone Dipropionate [Betamethasone Dipropionate 0.05%] 1 applic TOPICAL BID [place]/APAP/Caf/Cod [id number] [Fioricet w/Cod [id number]] 1 cap PO TID PRN PRN Reason: Migraine Headache HYDROcodone/APAP 7.5-325MG [Greenleaf 7.5-325] 1 tab PO Q6H PRN PRN Reason: Pain Loratadine-Pseudoeph 5-120 mg [Claritin-D 12 Hour] 1 tab PO BID PRN PRN Reason: Allergy Symptoms Etanercept [Enbrel Sureclick] 50 mg SQ TH Meloxicam [Mobic] 7.5 mg PO BID PRN PRN Reason: Pain Albuterol Inhaler [Ventolin Hfa Inhaler] 2 puff INHALATION RT-Q6H PRN PRN Reason: Wheezing L.acidoph,Paracasei, B.lactis [Probiotic] 1 cap PO DAILY Discontinued polyethylene glycoL 3350 [Miralax] 17 gm PO DAILY PRN PRN Reason: Constipation Wheat Dextrin [Benefiber] 1 packet PO HS PRN PRN Reason: Constipation Ondansetron Odt [Zofran Odt] 8 mg PO Q8H PRN PRN Reason: Migraine Headache hydroCHLOROthiazide [Hydrodiuril] 25 mg PO DAILY Losartan [Cozaar] 50 mg PO BID Carvedilol [Coreg] 3.125 mg PO BID amLODIPine [Norvasc] 10 mg PO DAILY NIFEdipine [NIFEdipine ER (Osmotic)] 30 mg PO DAILY Amoxicillin 500 mg PO BID Spironolactone [Aldactone] 25 mg PO DAILY Cyclobenzaprine [Flexeril] 10 mg PO TID PRN PRN Reason: Muscle Spasm Sennosides/Docusate Sodium [Colace 2-in-1 Tablet] 1 tab PO DAILY PRN PRN Reason: Constipation Nortriptyline [Pamelor] See Taper PO HS Discharge Medication List Albuterol Inhaler [Ventolin Hfa Inhaler] 2 puff INHALATION RT-Q6H PRN 11/26/19 [History] Betamethasone Dipropionate [Betamethasone Dipropionate 0.05%] 1 applic TOPICAL BID 11/26/19 [History] Buta/APAP/Caf/Cod [id number] [Fioricet w/Cod [id number]] 1 cap PO TID PRN 11/26/19 [History] Etanercept [Enbrel Sureclick] 50 mg SQ TH 11/26/19 [History] HYDROcodone/APAP 7.5-325MG [Greenleaf 7.5-325] 1 tab PO Q6H PRN 11/26/19 [History] Inulin/Chromium Picolinate [Fiber Gummies Chew] 2 tab PO DAILY 11/26/19 [History] L.acidoph,Paracasei, B.lactis [Probiotic] 1 cap PO DAILY 11/26/19 [History] Loratadine-Pseudoeph 5-120 mg [Claritin-D 12 Hour] 1 tab PO BID PRN 11/26/19 [History] Meloxicam [Mobic] 7.5 mg PO BID PRN 11/26/19 [History] Acetaminophen Tab [Tylenol] 650 mg PO Q4HR PRN tab 12/01/19 [Rx] Losartan [Cozaar] 50 mg PO BID 30 Days tab 12/01/19 [Rx] Lurasidone [Latuda] 40 mg PO 1800 30 Days tab 12/01/19 [Rx] Melatonin 3 mg PO HS #0 tablet 12/01/19 [Rx] NIFEdipine XL [Procardia XL] 30 mg PO DAILY 30 Days tab.er.24 12/01/19 [Rx] Sennosides-Docusate Sodium [Senokot-S] 1 each PO BID tab 12/01/19 [Rx] Spironolactone [Aldactone] 25 mg PO DAILY 30 Days tab 12/01/19 [Rx] amLODIPine [Norvasc] 10 mg PO DAILY 30 Days tab 12/01/19 [Rx] hydroCHLOROthiazide [Hydrodiuril] 25 mg PO DAILY 30 Days tab 12/01/19 [Rx] traZODone HCL [Desyrel] 100 mg PO HS 30 Days tab 12/01/19 [Rx] Follow up Appointment(s)/Referral(s): [facility] [Outside] - 12/03/19 10:00 am (Appointment on 12/03/19 at 10:00 am with Krys over the phone.) None,Stated [REFERRING] - 1-2 days Activity/Diet/Wound Care/Special Instructions: Activity and diet as tolerated. Avoid the use of street drugs and alcohol. Take all medications as prescribed. When you are in need of refills on your medications please contact your medical provider and/or outpatient psychiatrist to have this done. Please go to scheduled outpatient appointment for aftercare treatment. If symptoms return or become worse, call the crisis line at and/or go to the nearest emergency room for evaluation. Per Dr. Monaco, consider outpatient follow up with your primary care provider for a hearing test, age-appropriate cancer screening testing, follow up regarding your ongoing chronic medical conditions. Discharge Disposition: HOME SELF-CARE
[2019-12-01] MEDS: ACETAMINOPHEN TAB 325 MG TAB PO PRN (14:29)
[2019-12-01 16:16] VITALS: TEMP 99
== END 2019-12-01 17:08 | disposition home or self-care (01) | DRG 885 ==
LOC: EC 13:14 → 3MHU 16:47
PROVIDERS: ADMIT Psychiatry & Neurology Psychiatry; ATTEND Psychiatry & Neurology Psychiatry
DX: F31.30 Bipolar disorder, current episode depressed, mild or moderate severity, unspecified (principal); R44.0 Auditory hallucinations; F12.10 Cannabis abuse, uncomplicated; F41.9 Anxiety disorder, unspecified; G47.00 Insomnia, unspecified; I10 Essential (primary) hypertension; G43.909 Migraine, unspecified, not intractable, without status migrainosus; G89.29 Other chronic pain; M54.9 Dorsalgia, unspecified; M19.90 Unspecified osteoarthritis, unspecified site; F17.200 Nicotine dependence, unspecified, uncomplicated; Z79.1 Long term (current) use of non-steroidal anti-inflammatories (NSAID); Z79.899 Other long term (current) drug therapy; Z88.1 Allergy status to other antibiotic agents; Z88.5 Allergy status to narcotic agent; Z80.3 Family history of malignant neoplasm of breast; Z84.2 Family history of other diseases of the genitourinary system
CPT/HCPCS: 80053; 80061; 80306; 81001; 82075; 82306; 83036; 84443; 85025; 99284